=== PATIENT | female | born 1985 | race Caucasian/White ===

== ENCOUNTER → 2017-05-29 | Outpatient (CLI) | payer OTHER ==
[2017-06-01 14:15] LABS: HERPES SIMPLEX CULT SOURCE GENITAL-VULVA; HERPES SIMPLEX VIRUS CULT NOT ISOLATED (NOT ISOLATED)
== END | disposition home or self-care (01) ==
LOC: C.LABSPEC 17:53
PROVIDERS: ATTEND Physician Assistant
DX: N94.9 Unspecified condition associated with female genital organs and menstrual cycle (principal)

== ENCOUNTER 2017-11-16 19:05 | Emergency (ER) | payer OTHER ==
[~2017-11-16] VITALS: Ht 177.8 cm; Wt 80.0 kg
[2017-11-16 19:13] VITALS: TEMP 36.8; Ht 177.8 cm; Wt 80.0 kg
[2017-11-16] MEDS ORDERED: ACETAMINOPHEN 325 MG TAB PO STA (20:08)
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
--- NOTE | 2017-11-16 21:26 | DIAGNOSTIC IMAGING REPORT ---
R HAND MIN 3 VIEWS ROUTINE CLINICAL HISTORY: Hand pain pain COMPARISON: None. DISCUSSION: The bones and joint spaces appear intact. There is no evidence of fracture, dislocation or bony disease. There is no evidence for soft tissue swelling. IMPRESSION: Negative study. The above report was generated using voice recognition software. It may contain grammatical, syntax or spelling errors. Electronically signed by: Gerson Carbajal M.D. 11/16/2017 9:24 PM Dictated Date/Time: 11/16/2017 9:24 PM
[2017-11-16 21:54] VITALS: BP 141/82; PULSE 73; O2SAT 98
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
== END 2017-11-16 21:55 | disposition home or self-care (01) ==
LOC: EDBD 19:05 → C.EDA 19:06
DX: M54.2 Cervicalgia (principal); V89.2XXA Person injured in unspecified motor-vehicle accident, traffic, initial encounter; J45.909 Unspecified asthma, uncomplicated